=== PATIENT | male | born 1965 | race Caucasian/White ===

== ENCOUNTER 2024-12-06 18:41 | Inpatient (IN) | payer OTHER, SELFPAY ==
[2024-12-06 19:15] VITALS: BP 172/96; PULSE 76; RESP 15; TEMP 36.5; O2SAT 97
[2024-12-06 19:16] VITALS: BMI 26.0
--- NOTE | 2024-12-06 19:17 | PC.NURSE ---
Patient was admitted this evening at 19:05 on a CV from [facility]. Patient's jacquard loom card changer has been completed with another nurse. Patient's skin check was unremarkable, height and weight have been documented along with patients vitals upon arrival to the unit (97.7, 97%, 76HR, 15R 172/96). Reports no recent falls or hx of seizures, placed on 15 minute checks for safety.
[2024-12-06 20:52] VITALS: BP 146/86; PULSE 74; O2SAT 99
[2024-12-06] MEDS: TiZANidine HCL 4 MG TABLET 2 MG PO (22:40)
[2024-12-06] MEDS: QUEtiapine Fumarate 200 MG TABLET PO (22:42)
[2024-12-06] MEDS: Apixaban 5 MG TABLET PO (22:43)
--- NOTE | 2024-12-07 00:59 | PC.ADMIT ---
Patient was admitted this evening at 19:05 on a CV from [facility]. Patient has a diagnosis of Major depressive disorder, recurrent, severe without psychosis. Patient stated that 2 days ago, while at a hotel where he has been staying, he attempted suicide by taking a bottle with 12 tablets of prescribed Seroquel, and having gone to sleep, only to wake up and find out that he was alive and he had hotel staff call 911. Patient gave the reason for attempt as pressure from being unhoused, and loss of family members. Patient presents as depressed, and endorses alcohol and tobacco use before hospitalization, with most recent consumption of alcohol given as 12/04/24. Nursing intervention CIWA was performed with negative results. He denies any AVH, denies HI, or SI. Patient medical history includes Pulmonary Embolism, prostate cancer which required surgery in 2020. Patient was oriented to the unit. Patient's skin check was unremarkable, height and weight have been documented along with patients vitals. Reports no recent falls or seizures. He was placed on 15 minute checks for safety. Patient assisted in medication reconciliation. Patient participated in treatment plan and safety tool completion.
--- NOTE | 2024-12-07 01:56 | PC.NURSE ---
QUIT WORKS-unable to complete form as patient is undomiciled and does not have a phone at this time.
[2024-12-07 08:00] VITALS: BP 141/83; PULSE 98; RESP 16; O2SAT 98
[2024-12-07] MEDS: TiZANidine HCL 4 MG TABLET 2 MG PO ×3 (08:23→21:11)
[2024-12-07] MEDS: Apixaban 5 MG TABLET PO ×2 (08:23→21:10)
[2024-12-07] MEDS: Sertraline HCL 50 MG TABLET 150 MG PO (08:24)
[2024-12-07 08:28] LABS: Estimated Average Glucose 105 mg/dL; Hemoglobin A1C 134.1029 umol/L; Hemoglobin A1c % 5.3 % (<6.0); Total Hemoglobin (HGBA1C) 3870.4193 umol/L
--- NOTE | 2024-12-07 08:33 | HO.PM.IMCN ---
History of Present Illness Data of Consult Service Date: 12/07/24 Primary Care Provider: Unknown Physician HPI Reason for consult: Medical H&P 59-year-old male with a past medical history of prostate cancer in 2021, history of PE currently on Eliquis, anxiety, depression, and EtOH. He was admitted from [facility] after he took 12-14 200 mg Seroquel tabs. He had serial EKGs which were normal, CMP and CBC were both normal. U tox screen negative. He reports a history of EtOH use since age 14. Drinks 1/5 of vodka every 2-3 days. Denies any symptoms of withdrawal at this time. He is alert and cooperative on exam, denies any shortness of breath, chest pain, dizziness lightheadedness headaches or any other concerning symptoms. Labs are pending this morning, A1c 5.3. Reports that he has been told he has had hypertension in the past however he is not taking any medications. Review of Systems Review of Systems: Denies any shortness of breath, chest pain, dizziness, lightheadedness, abdominal pain or discomfort, nausea vomiting or diarrhea PMFSH Social History Household Members: Unknown / Unable to assess Housing: Unknown / Unable to assess Do you presently have visiting nurse or other home services: No Patient Tobacco Use Status: Current someday Tobacco user Tobacco use type: Cigarette Cigarette Packs Per Day: 0.5 Cigarettes Per Day: 10.0 Years Smoked: Reports smoking since 14 yeas old Smoked in Last 30 Days: Yes e-Cigarette/Vaping Use: Never Used Patient Interested in Nicotine Replacement: Yes Patient Given Instructions on How to Stop Smoking: Yes Date Education Initiated: 12/06/24 Second Hand Smoke Exposure: Yes Have you been hit, kicked, punched, or otherwise hurt by someone within the past year? If so, by whom?: No Do you feel safe in your current relationship?: No Current Relationship Is there a partner from a previous relationship who is making you feel unsafe now?: No Are you made to feel afraid or neglected: No Spiritual Healthcare Practices: none identified Catholic Healthcare Practices: none identified Cultural Healthcare Practices: none identified Advance Directives: No Advance Directives Information Provided: No Recently lost weight without trying: Yes How much weight loss: 2-13 pounds Eating poorly because of decreased appetite: Yes Nutrition screen score: 4 Nutrition Risks: No Nutritional Risk Poor oral hygiene: Yes (missing teeth) Meds Allergies Allergy/AdvReac Type Severity Reaction Status Date / Time Penicillins AdvReac Rash Verified 12/06/24 19:59 Active Medications: Current Medications Acetaminophen (Acetaminophen 325 Mg Tablet) 650 mg PO Q6H PRN PRN Reason: Headache/Pain, Scale 1-10 Al Hydroxide/Mg Hydroxide (Magnesium Hydrox/Alum Hydrox 30 Ml Oral.Susp) 30 ml PO Q6H PRN PRN Reason: Heartburn/Nausea Apixaban (Apixaban 5 Mg Tablet) 5 mg PO BID [facility] Last Admin: 12/07/24 08:23 Dose: 5 mg Hydroxyzine HCl (Hydroxyzine Hcl 25 Mg Tablet) 25 mg PO Q6H PRN PRN Reason: mild anxiety Magnesium Hydroxide (Milk Of Magnesia 30 Ml Oral.Susp) 30 ml PO DAILY PRN PRN Reason: Constipation Nicotine (Nicotine 21 Mg Patch.Td24) 21 mg TRANSDERMA DAILY PRN PRN Reason: smoking cessation Nicotine Polacrilex (Nicotine Polacrilex 2 Mg Gum) 4 mg BUCCAL Q2H PRN PRN Reason: Nicotine Cravings Olanzapine (Olanzapine 5 Mg Tablet) 5 mg PO TID PRN PRN Reason: agitation Quetiapine Fumarate (Quetiapine Fumarate 200 Mg Tablet) 200 mg PO BEDTIME [facility] Last Admin: 12/06/24 22:42 Dose: 200 mg Sertraline HCl (Sertraline Hcl 50 Mg Tablet) 150 mg PO DAILY [facility] Last Admin: 12/07/24 08:24 Dose: 150 mg Tizanidine HCl (Tizanidine Hcl 4 Mg Tablet) 2 mg PO TID [facility] Last Admin: 12/07/24 08:23 Dose: 2 mg Trazodone HCl (Trazodone Hcl 50 Mg Tablet) 50 mg PO BEDTIME MRX1 PRN PRN Reason: Insomnia Home Medications ?Medication ?Instructions ?Recorded ?Confirmed ?Last Taken ?Type apixaban 5 mg tablet (Eliquis) 5 mg PO BID 12/06/24 12/06/24 12/06/24 10:00 History quetiapine 200 mg tablet 200 mg PO BEDTIME 12/06/24 12/06/24 12/05/24 08:00 History sertraline 100 mg tablet 150 mg PO DAILY 12/06/24 12/06/24 12/04/24 08:00 History tizanidine 2 mg tablet 2 mg PO TID 12/06/24 12/06/24 12/05/24 10:00 History Physical Exam Vital Signs and Narrative: Vital Signs: Last Vital Signs Temp 97.7 F 12/06/24 19:15 Pulse 98 12/07/24 08:00 Resp 16 12/07/24 08:00 BP 141/83 H 12/07/24 08:00 Pulse Ox 98 12/07/24 08:00 O2 Del Method Room Air 12/07/24 08:00 BMI result Body Mass Index 26.0 Awake, Alert and oriented X3, able to give good history. Neuro: CN II-X11 intact, no deficits, visual acuity intact EYES: PERRLA, EOM intact ENT: hearing intact, uvula midline, lips moist Cardiac: S1 S2 RRR, no edema in Lower ext Pulmonary: lungs clear to auscultation, No increased WOB. Abdominal: BS active in all 4 quadrants, no guarding or tenderness MSK: Strength 5/5 upper and lower extremities : Deferred Extremities: no edema in lower extremities Psych: mood stable, cooperative with exam. Calm Skin: Warm and dry, Intact Results Labs 12/07/24 08:05 Labs: Laboratory Results - last 24 hr 12/07/24 08:05 Estimat Average Glucose 105 Hemoglobin A1c % 5.3 Assessment and Plan (1) Pulmonary embolism: Status: Acute Plan Depression anxiety/SI Treatment per psychiatric team Tobacco misuse Start nicotine patch Encouraged smoking cessation History of PE in 2021 Followed by PCP Continues on Eliharish b.i.d. Thank you for allowing me to participate in the care of this patient. Signing off at this time. Please reconsult of any acute complaints or issues arise
[2024-12-07 08:48] LABS: Alanine Aminotransferase 18 U/L (0-40); Albumin Level 4.3 g/dL (3.5-5.0); Alkaline Phosphatase 78 U/L (39-117); Anion Gap 10 (12-20); Aspartate Amino Transferase 28 U/L (5-37); Bilirubin Total 0.4 mg/dL (0.0-1.0); Blood Urea Nitrogen 16 mg/dL (9-16); Calcium 9.6 mg/dL (8.4-10.2); Carbon Dioxide 30 mmol/L (22-29); Chloride 105 mmol/L (96-108); Cholesterol 213 mg/dL (<200); Creatinine Clr Calc Pharmacy 80.4; Estimated Glomerular Filt Rate > 60; Glucose Random 110 mg/dL (60-115); HDL Cholesterol 45 mg/dL (>40); LDL Cholesterol Calculated 117 mg/dL (<100); Potassium 4.1 mmol/L (3.3-5.1); Sodium 141 mmol/L (135-145); Total Protein 7.7 g/dL (6.5-8.0); Triglycerides 257 mg/dL (<150)
[2024-12-07 09:02] LABS: TSH reflex Free T4 1.38 uIU/mL (0.32-4.0)
--- NOTE | 2024-12-07 09:28 | P.HPPS_ITS ---
HPI Date of Service: 12/07/24 Chief Complaint: Major depressive disorder, recurrent Sources of Information: patient interviewed, chart reviewed and crisis/core team assessment reviewed HPI Subjective Notes: Roberts Warning and Conditional Voluntary Narrative: Patient is a 59-year-old male with history of MDD and alcohol use disorder who arrived to ER via ambulance after suicide attempt via overdose on Seroquel secondary to increased depression. Per crisis report, patient presented to ER from hotel after taking 12-14 Seroquel in an suicide attempt. Patient reports he has experienced a significant amount of loss in his life and he is tired of feeling emotional pain everyday. Patient reports he left respite last week and attempted to go to the [facility] but was too overwhelmed to stay there so he has been in a hotel room for the past few nights. He denied HI/VH/AH. Patient reports history of alcohol abuse. BAL was 10. U tox was negative. History of multiple substance use programs. Patient reports being medication compliant. During admission assessment, patient presents alert and oriented x3. Calm and cooperative. Patient reports feeling depressed ; patient stated, I was looking at my situation. All the losses in my life. The last couple of months I've been feeling more depressed. Losing my room that I was renting was the last thing. I lived there for 3 years. They didn't tell us that they are going to sell the house . Patient reports chronic passive suicidal ideation however, denies history of SA/SIB. Patient stated, I normally tell myself things will get better . Patient reports he normally finds his psychiatric medications helpful however, he has been feeling more depressed due to his current life stressors. denies HI/VH/AH. He reports sleep and appetite are good. Denies history of withdrawal seizures. Patient reports he has a history of binge drinking. Patient stated, my last drink was 3 days before coming in. I drank half a gallon of vodka. The time prior to that was around mother's day . He currently denies withdrawal symptoms. He does not currently have outpatient psychiatric providers but would like referrals. History of multiple inpatient psychiatric hospitalizations. Patient reports he would like a referral to a substance abuse program or sober living. Past Psychiatric History: He does not currently have outpatient psychiatric providers. History of multiple inpatient psychiatric hospitalizations. hx of detox admissions. denies hx of SA/SIB Medical Evaluation Reviewed: Yes PMFSH Family History: denies Social History: Homeless. Single. 1 daughter ( at age 24). disability. highest level of education completed, 10th grade. Substance History: hx of binge drinking alcohol. utox positive for alcohol. Trauma History: yes Diagnostics Vital Signs (24Hr): Vital Signs - 24 hr 12/06/24 19:15 12/06/24 20:52 12/07/24 08:00 Temperature 97.7 F Pulse Rate 76 74 98 Respiratory Rate 15 16 Blood Pressure 172/96 H 146/86 H 141/83 H Pulse Oximetry 97 99 98 Oxygen Delivery Method Room Air Room Air Room Air BMI result Body Mass Index 26.0 Labs 12/07/24 08:05 Labs: Laboratory Results - last 48 hr 12/07/24 08:05 Sodium 141 Potassium 4.1 Chloride 105 Carbon Dioxide 30 H Anion Gap 10 L BUN 16 Creatinine 1.09 Estim Creat Clear Calc 80.4 Estimated GFR > 60 Random Glucose 110 Estimat Average Glucose 105 Hemoglobin A1c % 5.3 Calcium 9.6 Total Bilirubin 0.4 AST 28 ALT 18 Alkaline Phosphatase 78 Total Protein 7.7 Albumin 4.3 Triglycerides 257 H Cholesterol 213 H LDL Cholesterol, Calc 117 H HDL Cholesterol 45 TSH 1.38 Meds/Allergies Meds Home Medications ?Medication ?Instructions ?Recorded ?Confirmed ?Type apixaban 5 mg tablet (Eliquis) 5 mg PO BID 12/06/24 12/06/24 History quetiapine 200 mg tablet 200 mg PO BEDTIME 12/06/24 12/06/24 History sertraline 100 mg tablet 150 mg PO DAILY 12/06/24 12/06/24 History tizanidine 2 mg tablet 2 mg PO TID 12/06/24 12/06/24 History Allergies Allergies Allergy/AdvReac Type Severity Reaction Status Date / Time Penicillins AdvReac Rash Verified 12/06/24 19:59 Mental Status Exam Mental Status Exam Narrative: Pt is alert and oriented; behavior is cooperative and calm; dressed in casual attire; mood is described as depressed ; eye contact appropriate; Speech is normal rate, volume and not pressured; thought process is organized and goal directed; Thought content is on tx; denies HI/VH/AH. Pt reports chronic passive suicidal ideation with no plan. Assessment & Plan Assessment & Plan (1) MDD (major depressive disorder), recurrent episode: Status: Acute Code(s): F33.9 - Major depressive disorder, recurrent, unspecified (2) PTSD (post-traumatic stress disorder): Status: Acute Code(s): F43.10 - Post-traumatic stress disorder, unspecified (3) Alcohol use disorder: Status: Acute Code(s): F10.90 - Alcohol use, unspecified, uncomplicated (4) Homelessness: Status: Acute Code(s): Z59.00 - Homelessness unspecified Plan Patient is a 59-year-old male with history of MDD and alcohol use disorder who arrived to ER via ambulance after suicide attempt via overdose on Seroquel secondary to increased depression. Plan: CV 15 minute safety checks continue home medications obtain collateral encourage groups referral to outpatient psychiatric providers referral to substance abuse program discharge planning Patient educated on: diagnosis and medication risk/benefits Reason for continued inpatient stay Substantial Risk for: med/psych decompensation Statement Statement: I have reviewed the history and physical and performed a pertinent examination on my patient. No changes have occurred unless specified. If the History and Physical was not performed prior to admission, the Hospitalist's service will be consulted for completing the admission physical. Time Spent With Patient Time: Total time managing care of this patient today _60___ minutes.
[2024-12-07] MEDS: Nicotine 21 MG PATCH.TD24 TRANSDERMA (09:30)
[2024-12-07 20:00] VITALS: BP 145/71; PULSE 87; RESP 16; TEMP 36.3; O2SAT 98
[2024-12-07] MEDS: Acetaminophen 325 MG TABLET 650 MG PO (21:10)
[2024-12-07] MEDS: QUEtiapine Fumarate 200 MG TABLET PO (21:10)
[2024-12-08 08:00] VITALS: BP 149/86; PULSE 90; RESP 16; TEMP 36.4; O2SAT 97
[2024-12-08] MEDS: TiZANidine HCL 4 MG TABLET 2 MG PO ×3 (08:28→19:57)
[2024-12-08] MEDS: Sertraline HCL 50 MG TABLET 150 MG PO (08:29)
[2024-12-08] MEDS: Apixaban 5 MG TABLET PO ×2 (08:29→19:58)
[2024-12-08] MEDS: Nicotine 21 MG PATCH.TD24 TRANSDERMA (08:34)
--- NOTE | 2024-12-08 10:15 | P.PNPSI_ITS ---
Subjective Subjective Date of Service: 12/08/24 Reason For Visit: Major depressive disorder, recurrent Subjective Notes: Conditional Voluntary Interim History: Active on unit, social with peers. attending groups. Patient reports feeling hopeful today; pt stated, I am trying to take it one day at a time. I went to all the groups and did some exercise . He continues to report anxiety and depression but feels his mood improving. showered. denies SI/HI/VH/AH. Medication Compliance: Yes Side effects from medications: No Attending Groups: Yes Mental Status Exam Mental Status Exam Narrative: Pt is alert and oriented; behavior is cooperative and calm; dressed in casual attire; mood is described as anxious and depressed ; eye contact appropriate; Speech is normal rate, volume and not pressured; thought process is organized and goal directed; Thought content is on tx; denies SI/HI/VH/AH. Diagnostics Vital Signs (24Hr): Vital Signs - 24 hr 12/07/24 20:00 12/08/24 08:00 Temperature 97.3 F 97.6 F Pulse Rate 87 90 Respiratory Rate 16 16 Blood Pressure 145/71 H 149/86 H Pulse Oximetry 98 97 Oxygen Delivery Method Room Air Room Air BMI result Body Mass Index 26.0 Labs 12/07/24 08:05 Labs: Laboratory Results - last 48 hr 12/07/24 08:05 Sodium 141 Potassium 4.1 Chloride 105 Carbon Dioxide 30 H Anion Gap 10 L BUN 16 Creatinine 1.09 Estim Creat Clear Calc 80.4 Estimated GFR > 60 Random Glucose 110 Estimat Average Glucose 105 Hemoglobin A1c % 5.3 Calcium 9.6 Total Bilirubin 0.4 AST 28 ALT 18 Alkaline Phosphatase 78 Total Protein 7.7 Albumin 4.3 Triglycerides 257 H Cholesterol 213 H LDL Cholesterol, Calc 117 H HDL Cholesterol 45 TSH 1.38 Medications Medications Current Medications Acetaminophen (Acetaminophen 325 Mg Tablet) 650 mg PO Q6H PRN PRN Reason: Headache/Pain, Scale 1-10 Last Admin: 12/07/24 21:10 Dose: 650 mg Al Hydroxide/Mg Hydroxide (Magnesium Hydrox/Alum Hydrox 30 Ml Oral.Susp) 30 ml PO Q6H PRN PRN Reason: Heartburn/Nausea Apixaban (Apixaban 5 Mg Tablet) 5 mg PO BID [facility] Last Admin: 12/08/24 08:29 Dose: 5 mg Hydroxyzine HCl (Hydroxyzine Hcl 25 Mg Tablet) 25 mg PO Q6H PRN PRN Reason: mild anxiety Magnesium Hydroxide (Milk Of Magnesia 30 Ml Oral.Susp) 30 ml PO DAILY PRN PRN Reason: Constipation Nicotine (Nicotine 21 Mg Patch.Td24) 21 mg TRANSDERMA DAILY PRN PRN Reason: smoking cessation Last Admin: 12/08/24 08:34 Dose: 21 mg Nicotine Polacrilex (Nicotine Polacrilex 2 Mg Gum) 4 mg BUCCAL Q2H PRN PRN Reason: Nicotine Cravings Olanzapine (Olanzapine 5 Mg Tablet) 5 mg PO TID PRN PRN Reason: agitation Quetiapine Fumarate (Quetiapine Fumarate 200 Mg Tablet) 200 mg PO BEDTIME [facility] Last Admin: 12/07/24 21:10 Dose: 200 mg Sertraline HCl (Sertraline Hcl 50 Mg Tablet) 150 mg PO DAILY [facility] Last Admin: 12/08/24 08:29 Dose: 150 mg Tizanidine HCl (Tizanidine Hcl 4 Mg Tablet) 2 mg PO TID [facility] Last Admin: 12/08/24 08:28 Dose: 2 mg Trazodone HCl (Trazodone Hcl 50 Mg Tablet) 50 mg PO BEDTIME MRX1 PRN PRN Reason: Insomnia Allergies Allergies Allergy/AdvReac Type Severity Reaction Status Date / Time Penicillins AdvReac Rash Verified 12/06/24 19:59 Assessment & Plan Assessment & Plan (1) MDD (major depressive disorder), recurrent episode: Status: Acute Code(s): F33.9 - Major depressive disorder, recurrent, unspecified (2) PTSD (post-traumatic stress disorder): Status: Acute Code(s): F43.10 - Post-traumatic stress disorder, unspecified (3) Alcohol use disorder: Status: Acute Code(s): F10.90 - Alcohol use, unspecified, uncomplicated (4) Homelessness: Status: Acute Code(s): Z59.00 - Homelessness unspecified Plan Patient is a 59-year-old male with history of MDD and alcohol use disorder who arrived to ER via ambulance after suicide attempt via overdose on Seroquel secondary to increased depression. Plan: CV 15 minute safety checks continue home medications obtain collateral encourage groups referral to outpatient psychiatric providers referral to substance abuse program discharge planning 12/08:Active on unit, social with peers. attending groups. Patient reports feeling hopeful today; pt stated, I am trying to take it one day at a time. I went to all the groups and did some exercise . He continues to report anxiety and depression but feels his mood improving. showered. denies SI/HI/VH/AH. continue current tx plan. Patient educated on: diagnosis, medication risk/benefits and therapeutic strategies Reason for continued inpatient stay Substantial Risk for: med/psych decompensation Time Spent With Patient Time: Total time managing care of this patient today _20___ minutes.
[2024-12-08] MEDS: QUEtiapine Fumarate 200 MG TABLET PO (19:58)
[2024-12-08 20:00] VITALS: BP 126/75; PULSE 98; RESP 16; TEMP 36.9; O2SAT 95
[2024-12-09 07:00] VITALS: BMI 25.8
[2024-12-09 08:00] VITALS: BP 136/78; PULSE 94; RESP 14; TEMP 36.4; O2SAT 97
[2024-12-09] MEDS: TiZANidine HCL 4 MG TABLET 2 MG PO (08:22)
[2024-12-09] MEDS: Apixaban 5 MG TABLET PO (08:22)
[2024-12-09] MEDS: Sertraline HCL 50 MG TABLET 150 MG PO (08:23)
--- NOTE | 2024-12-09 09:47 | HO.ADDICT_ITS ---
History of Present Illness Date of Service: 12/09/2024 Chief Complaint: Major depressive disorder, recurrent Reason for Consult: AUD Sources of Information: patient interviewed and chart reviewed HPI Narrative: Patient is a 59 year old male with MDD and AUD admitted to unit following intentional overdose with seroquel Consult requested to eval and treat AUD Patient seen on unit. He is awake, alert, pleasant and engaged in interview He reports drinking started at age 14 Numerous admissions to ATS, CSS, IOP, etc Denies any history of GAIL Reports strong family history of AUD Current use reports as a couple fifths of vodka daily Last drink almost a week ago No withdrawal sx reported or observed Denies any other substance use Identifies losing stable housing as a trigger for increased drinking Past Psychiatric History: He does not currently have outpatient psychiatric providers. History of multiple inpatient psychiatric hospitalizations. hx of detox admissions. denies hx of SA/SIB Review of Systems Constitutional: Reports as per HPI and Reports no additional constitutional complaints Diagnostics Vital Signs (24Hr): Vital Signs - 24 hr 12/08/24 20:00 12/09/24 08:00 Temperature 98.5 F 97.6 F Pulse Rate 98 94 Respiratory Rate 16 14 Blood Pressure 126/75 136/78 Pulse Oximetry 95 97 Oxygen Delivery Method Room Air Room Air BMI result Body Mass Index 26.0 Labs 12/07/24 08:05 Mental Status Exam Mental Status Exam Patient Appearance: Appropriate Patient Orientation: Person, Place, Time and Situation Level of Consciousness: Awake, Appropriate and Alert Patient Behavior: Appropriate and Talkative Affect Description: Calm Speech Pattern: Clear Hallucinations: None Thought Content: positive for Intact Judgement: Good Medications Medications Current Medications Acetaminophen (Acetaminophen 325 Mg Tablet) 650 mg PO Q6H PRN PRN Reason: Headache/Pain, Scale 1-10 Last Admin: 12/07/24 21:10 Dose: 650 mg Al Hydroxide/Mg Hydroxide (Magnesium Hydrox/Alum Hydrox 30 Ml Oral.Susp) 30 ml PO Q6H PRN PRN Reason: Heartburn/Nausea Apixaban (Apixaban 5 Mg Tablet) 5 mg PO BID [facility] Last Admin: 12/09/24 08:22 Dose: 5 mg Hydroxyzine HCl (Hydroxyzine Hcl 25 Mg Tablet) 25 mg PO Q6H PRN PRN Reason: mild anxiety Magnesium Hydroxide (Milk Of Magnesia 30 Ml Oral.Susp) 30 ml PO DAILY PRN PRN Reason: Constipation Naltrexone HCl (Naltrexone Hcl 50 Mg Tablet) 25 mg PO DAILY [facility] Stop: 12/11/24 09:01 Naltrexone HCl (Naltrexone Hcl 50 Mg Tablet) 50 mg PO DAILY [facility] Nicotine (Nicotine 21 Mg Patch.Td24) 21 mg TRANSDERMA DAILY PRN PRN Reason: smoking cessation Last Admin: 12/08/24 08:34 Dose: 21 mg Nicotine Polacrilex (Nicotine Polacrilex 2 Mg Gum) 4 mg BUCCAL Q2H PRN PRN Reason: Nicotine Cravings Olanzapine (Olanzapine 5 Mg Tablet) 5 mg PO TID PRN PRN Reason: agitation Quetiapine Fumarate (Quetiapine Fumarate 200 Mg Tablet) 200 mg PO BEDTIME [facility] Last Admin: 12/08/24 19:58 Dose: 200 mg Sertraline HCl (Sertraline Hcl 50 Mg Tablet) 150 mg PO DAILY [facility] Last Admin: 12/09/24 08:23 Dose: 150 mg Tizanidine HCl (Tizanidine Hcl 4 Mg Tablet) 2 mg PO TID [facility] Last Admin: 12/09/24 08:22 Dose: 2 mg Trazodone HCl (Trazodone Hcl 50 Mg Tablet) 50 mg PO BEDTIME MRX1 PRN PRN Reason: Insomnia Allergies Allergies Allergy/AdvReac Type Severity Reaction Status Date / Time Penicillins AdvReac Rash Verified 12/06/24 19:59 Assessment & Plan Assessment & Plan (1) Alcohol use disorder: Status: Acute Code(s): F10.90 - Alcohol use, unspecified, uncomplicated Assessment and Plan: * naltrexone 25mg X 3 days then increase to 50mg daily. reviewed medication, dosing, side effects and goals of treatment. * declines referral to SAÚL provider, stating his PCP will continue medication for him * reviewed other recovery supports, including peer recovery center in [facility] Total time managing care of this patient today ___40_ minutes. [facility] Social History Social History Household Members: Unknown / Unable to assess Housing: Unknown / Unable to assess Do you presently have visiting nurse or other home services: No Patient Tobacco Use Status: Current someday Tobacco user Tobacco use type: Cigarette Cigarette Packs Per Day: 0.5 Cigarettes Per Day: 10.0 Years Smoked: Reports smoking since 14 yeas old e-Cigarette/Vaping Use: Never Used Second Hand Smoke Exposure: Yes service: No Sexual orientation: Straight/Heterosexual
[2024-12-09] MEDS: Naltrexone HCl 50 MG TABLET 25 MG PO (10:28)
--- NOTE | 2024-12-09 11:42 | PM.PSYDC ---
DS: Providers Provider Date of Service: 12/09/24 Date of admission: 12/06/24 18:41 Date of discharge: 12/09/24 Primary care physician: Unknown Physician Admitting clinician: Keri Puckett Attending physician on admission: Dany Morrow Consults: 12/06/24 20:25 Consult to Hospitalist Routine Comment: Consulting Provider: [facility] [place] Hospitalists Reason For Exam: admission physical 12/06/24 22:17 Addiction Medicine Provider Routine Consulting Provider: Addiction Covering Reason for consultation: Assistance with alcohol use disorder Attending physician on discharge: Dany Morrow Discharging clinician: Keri Puckett DS: Diagnosis Discharge Diagnosis (1) MDD (major depressive disorder), recurrent episode: Status: Acute (2) PTSD (post-traumatic stress disorder): Status: Acute (3) Alcohol use disorder: Status: Acute (4) Homelessness: Status: Acute DS: Medications Discharge Medications Home Medications: Home Medications ?Medication ?Instructions ?Recorded ?Confirmed apixaban 5 mg tablet (Eliquis) 5 mg PO BID 12/06/24 12/06/24 quetiapine 200 mg tablet 200 mg PO BEDTIME 12/06/24 12/06/24 sertraline 100 mg tablet 150 mg PO DAILY 12/06/24 12/06/24 tizanidine 2 mg tablet 2 mg PO TID 12/06/24 12/06/24 Mental Status Exam Mental Status Exam Narrative: Pt is alert and oriented; behavior is cooperative and calm; dressed in casual attire; mood is described as good ; eye contact appropriate; Speech is normal rate, volume and not pressured; thought process is organized and goal directed; Thought content is on tx; denies SI/HI/VH/AH. Data Data Completed and Pending Completed studies during hospitalization [Text1]: 12/07/24 08:05 Sodium 141 Potassium 4.1 Chloride 105 Carbon Dioxide 30 H Anion Gap 10 L BUN 16 Creatinine 1.09 Estim Creat Clear Calc 80.4 Estimated GFR > 60 Random Glucose 110 Estimat Average Glucose 105 Hemoglobin A1c % 5.3 Calcium 9.6 Total Bilirubin 0.4 AST 28 ALT 18 Alkaline Phosphatase 78 Total Protein 7.7 Albumin 4.3 Triglycerides 257 H Cholesterol 213 H LDL Cholesterol, Calc 117 H HDL Cholesterol 45 TSH 1.38 DS: Summary Hospital Course Hospital Course: Patient is a 59-year-old male with history of MDD and alcohol use disorder who arrived to ER via ambulance after suicide attempt via overdose on Seroquel secondary to increased depression. Per crisis report, patient presented to ER from [facility] after taking 12-14 Seroquel in an suicide attempt. Patient reports he has experienced a significant amount of loss in his life and he is tired of feeling emotional pain everyday. Patient reports he left respite last week and attempted to go to the [facility] but was too overwhelmed to stay there so he has been in a hotel room for the past few nights. He denied HI/VH/AH. Patient reports history of alcohol abuse. BAL was 10. U tox was negative. History of multiple substance use programs. Patient reports being medication compliant. During admission assessment, patient presents alert and oriented x3. Calm and cooperative. Patient reports feeling depressed ; patient stated, I was looking at my situation. All the losses in my life. The last couple of months I've been feeling more depressed. Losing my room that I was renting was the last thing. I lived there for 3 years. They didn't tell us that they are going to sell the house . Patient reports chronic passive suicidal ideation however, denies history of SA/SIB. Patient stated, I normally tell myself things will get better . Patient reports he normally finds his psychiatric medications helpful however, he has been feeling more depressed due to his current life stressors. denies HI/VH/AH. He reports sleep and appetite are good. Denies history of withdrawal seizures. Patient reports he has a history of binge drinking. Patient stated, my last drink was 3 days before coming in. I drank half a gallon of vodka. The time prior to that was around mother's day . He currently denies withdrawal symptoms. He does not currently have outpatient psychiatric providers but would like referrals. History of multiple inpatient psychiatric hospitalizations. Patient reports he would like a referral to a substance abuse program or sober living. Plan: CV 15 minute safety checks continue home medications obtain collateral encourage groups referral to outpatient psychiatric providers referral to substance abuse program discharge planning Active on unit, social with peers. attending groups. Patient reports feeling hopeful today; pt stated, I am trying to take it one day at a time. I went to all the groups and did some exercise . He continues to report anxiety and depression but feels his mood improving. showered. denies SI/HI/VH/AH. continue current tx plan. Patient reports feeling good and happy he was accepted to substance abuse program. focused on sobriety. per nursing, slept 8 hours last night. denies SI/HI/VH/AH. Pt reports he plans on following up with his outpatient providers. Status at Discharge Cognitive/behavioral status at discharge: Patient has insight and demonstrates good judgment in terms of wanting to pursue treatment. Patient has a safety plan that includes presenting to the closest ER or calling 911 if feeling unsafe. Functional status at discharge: independent ambulation Overall status at discharge: patient is back to baseline Time Spent with Patient Time attestation: Total time managing care of this patient today _20___ minutes. Time spent: Less than 30 minutes Discharge Plan Discharge Anticipated Discharge Date/Time: 12/09/24 13:00 Patient Disposition: Home, Self-Care Discharge Diagnosis: MDD, PTSD, alcohol use d/o Referrals: Physician,Unknown J [Primary Care Provider] - 1 Week Discharge Medications: New naltrexone 50 mg Tablet 50 mg PO DAILY 7 Days Qty: 7 0RF Continued tizanidine 2 mg tablet 2 mg PO TID 7 Days Qty: 21 0RF quetiapine 200 mg tablet 200 mg PO BEDTIME 7 Days Qty: 7 0RF Eliquis 5 mg tablet 5 mg PO BID 7 Days Qty: 14 0RF sertraline 150 mg capsule 150 mg PO DAILY 7 Days Qty: 7 0RF Discharge Orders: Discharge Order (Routine); Ordered 12/09/24 Ordered By: Keri Puckett Diet: Regular diet Activity on Discharge: As tolerated Stand Alone Forms: Patient Portal Discharge page, Community Support Print Language: Micronesian Care Plan Goals: Maintain mood and safe behaviors Take medications as prescribed Continue to pursue sobriety Practice coping skills Continue with outpatient providers and reach out to them as needed Health Concerns: Mood stability and behaviors Sobriety Plan of Treatment: Follow up with your PCP, psychiatric provider and other outpatient providers regarding above concerns Take medications as prescribed Assessment: Patient has insight and demonstrates good judgment in terms of wanting to pursue treatment. Patient has a safety plan that includes presenting to the closest ER or calling 911 if feeling unsafe. Discharge Date/Time: 12/09/24 12:57
== END 2024-12-09 12:57 | disposition home or self-care (01) | DRG 754 ==
PROVIDERS: Psychiatry & Neurology Psychiatry; Admitting Provider Psychiatry & Neurology Psychiatry; Responsible Provider Registered Nurse; Visit Provider Psychiatry & Neurology Psychiatry
DX: F32.9 Major depressive disorder, single episode, unspecified (principal); R45.851 Suicidal ideations; F17.210 Nicotine dependence, cigarettes, uncomplicated; F43.10 Post-traumatic stress disorder, unspecified; Z71.6 Tobacco abuse counseling; Z86.711 Personal history of pulmonary embolism; Z79.01 Long term (current) use of anticoagulants; Z79.899 Other long term (current) drug therapy
CPT/HCPCS: 36415; 80053; 80061; 83036; 84443

== ENCOUNTER → 2024-12-06 18:41 | Outpatient (BNV) | payer OTHER, SELFPAY | PROVIDERS: Admitting Provider Psychiatry & Neurology Psychiatry; Visit Provider Nurse Practitioner Family | DX: I26.99 Other pulmonary embolism without acute cor pulmonale (principal) | CPT/HCPCS: 99221 ==

== ENCOUNTER → 2024-12-06 18:41 | Outpatient (BNV) | payer OTHER, SELFPAY | PROVIDERS: Admitting Provider Psychiatry & Neurology Psychiatry; Responsible Provider Registered Nurse; Visit Provider Registered Nurse | DX: F33.2 Major depressive disorder, recurrent severe without psychotic features (principal); F43.11 Post-traumatic stress disorder, acute; F10.90 Alcohol use, unspecified, uncomplicated; Z59.00 Homelessness unspecified | CPT/HCPCS: 99231; 99232; 99233; 99499 ==